=== PATIENT | male | born 1995 | race Caucasian/White ===

== ENCOUNTER → 2020-06-10 | Day surgery (SDC) | payer OTHER ==
[~2020-06-10] MED LIST: FAMOTIDINE20 MG PO; PROTONIX40 MG PO
== END | disposition home or self-care (01) ==
LOC: OR 07:13
PROVIDERS: Surgery
PROC: 0DB78ZX Excision of Stomach, Pylorus, Via Natural or Artificial Opening Endoscopic, Diagnostic (ICD-10-PCS; 2020-06-10)
PROC: 0DB68ZX Excision of Stomach, Via Natural or Artificial Opening Endoscopic, Diagnostic (ICD-10-PCS; 2020-06-10)
PROC: 0DB38ZX Excision of Lower Esophagus, Via Natural or Artificial Opening Endoscopic, Diagnostic (ICD-10-PCS; principal; 2020-06-10 10:00)
DX: K21.00 Gastro-esophageal reflux disease with esophagitis, without bleeding (principal); K29.50 Unspecified chronic gastritis without bleeding; K44.9 Diaphragmatic hernia without obstruction or gangrene; E78.5 Hyperlipidemia, unspecified; K22.10 Ulcer of esophagus without bleeding; S27.818A Other injury of esophagus (thoracic part), initial encounter; F17.210 Nicotine dependence, cigarettes, uncomplicated; G89.29 Other chronic pain; M79.18 Myalgia, other site; E66.9 Obesity, unspecified; Z68.36 Body mass index [BMI] 36.0-36.9, adult; Z79.899 Other long term (current) drug therapy; Z20.822 Contact with and (suspected) exposure to COVID-19; X58.XXXA Exposure to other specified factors, initial encounter
CPT/HCPCS: J2704; J7120

== ENCOUNTER → 2021-04-09 | Outpatient (CLI) | payer OTHER | LOC: EXRD 11:30 → CT 11:35 → EXRD 11:35 | DX: N50.811 Right testicular pain (principal); R93.811 Abnormal radiologic findings on diagnostic imaging of right testicle; N50.89 Other specified disorders of the male genital organs | CPT/HCPCS: 76870; Q9967 ==

== ENCOUNTER → 2021-05-02 | Outpatient (CLI) | payer OTHER | LOC: MRI 11:00 | DX: C62.90 Malignant neoplasm of unspecified testis, unspecified whether descended or undescended (principal) | CPT/HCPCS: 70553; A9577 ==

== ENCOUNTER → 2021-08-05 | Outpatient (CLI) | payer OTHER ==
[~2021-08-05] MED LIST changes: +IBUPROFEN800 MG PO; +PEPCID40 MG PO
== END ==
LOC: CT 07-24 08:30
DX: C62.90 Malignant neoplasm of unspecified testis, unspecified whether descended or undescended (principal); C43.59 Malignant melanoma of other part of trunk
CPT/HCPCS: Q9967

== ENCOUNTER 2021-08-25 21:41 | Observation (INO) | payer OTHER ==
[~2021-08-25] VITALS: Ht 172.7 cm; Wt 101.2 kg
[2021-08-25 22:45] LABS: HEMOGLOBIN 13.9 gm/dl (14.0-17.5); RED BLOOD COUNT 4.55 M/UL (4.20-5.50)
[2021-08-25 23:05] LABS: BUN/CREATININE RATIO 16 (0-10)
--- NOTE | 2021-08-26 09:07 | NUR ---
PATIENT HAD CRITICAL LABS TROPONIN 1813.8, CKMB 23.3, CKMB% 17.1. PROVIDERS SONJA AND JOSH WERE BOTH NOTIFIED. DR. MORENO SAID "ADD HIM TO MY LIST AND WE WILL COME SEE HIM." DR. CASILLAS WAS INFORMED THAT DR. MORENO HAD BEEN NOTIFIED WELL AND REPLIED "OK, THANK YOU." NO NEW ORDERS RECIEVED. WILL CONTINUE TO MONITORL.
[2021-08-26] MEDS ORDERED: LEVOFLOXACIN500 MG PO (10:14)
[2021-08-26] MEDS ORDERED: LORAZEPAM0.5 MG PO (10:14)
[2021-08-26] MEDS ORDERED: PROCHLORPERAZIN10 MG PO (10:17)
[2021-08-26] MEDS ORDERED: MAALOX PLUS 3030 ML PO (10:25)
[2021-08-26] MEDS ORDERED: ANTI-DIARRHEAL2 M1 PO (10:27)
[2021-08-26] MEDS ORDERED: ETOPOPHOS100 MG IV (10:32)
[2021-08-26] MEDS ORDERED: CISPLATIN IV (10:33)
[2021-08-26] MEDS ORDERED: BLEOMYCIN IV (10:39)
--- NOTE | 2021-08-26 14:36 | NUR ---
PATIENT OFF FLOOR FOR HEART CATH. LAB CALLED WITH CRITICAL LAB VALUES, TROPONIN 2972.9, CKMB 32.8, CKMB% 17.2. ALL VALUES REPORTED TO DR. RILEY. NO NEW ORDERS AT THIS TIME. WILL CONTINUE TO MONITOR.
[2021-08-26 20:06] LABS: HEMOGLOBIN 12.4 gm/dl (14.0-17.5)
[2021-08-26 20:09] LABS: RED BLOOD COUNT 4.09 M/UL (4.20-5.50); WHITE BLOOD COUNT 2.7 K/UL (4.5-11.0)
[2021-08-27 04:28] LABS: BUN/CREATININE RATIO 18 (0-10)
[2021-08-27 04:44] LABS: HEMOGLOBIN 11.9 gm/dl (14.0-17.5); RED BLOOD COUNT 3.91 M/UL (4.20-5.50); WHITE BLOOD COUNT 2.2 K/UL (4.5-11.0)
[2021-08-28 01:36] LABS: HEMOGLOBIN 11.6 gm/dl (14.0-17.5); RED BLOOD COUNT 3.82 M/UL (4.20-5.50)
[2021-08-28 01:40] LABS: WHITE BLOOD COUNT 1.6 K/UL (4.5-11.0)
[2021-08-28 02:01] LABS: BUN/CREATININE RATIO 16 (0-10)
[2021-08-28] MEDS ORDERED: ATORVASTATIN CA40 MG PO (14:28)
[2021-08-28] MEDS ORDERED: ACYCLOVIR200 MG PO (14:28)
[2021-08-28] MEDS ORDERED: COZAAR 25MG TAB25 MG PO (14:28)
[2021-08-28] MEDS ORDERED: CLOPIDOGREL75 MG PO ×2 (14:28→15:01)
[2021-08-28] MEDS ORDERED: MAGIC MOUTHWASH PO (14:28)
[2021-08-28] MEDS ORDERED: NITROGLYCERIN0.4 MG SL (14:28)
[2021-08-28] MEDS ORDERED: K-TAB ER20 MEQ PO (14:28)
[2021-08-28] MEDS ORDERED: ASPIRIN EC81 MG PO ×2 (14:28→15:01)
[2021-08-28] MEDS ORDERED: ACYCLOVIR400 MG PO (15:09)
[2021-08-28] MEDS ORDERED: MAGNESIUM OXID400 M1 PO (15:10)
== END 2021-08-28 15:43 | disposition home or self-care (01) ==
LOC: ER1 21:41 → CDU 08-26 03:45 → MED SURG 4 08-26 03:45 → PROG CARE 08-26 16:55
PROVIDERS: Nurse Practitioner; ADMIT Internal Medicine
DX: R07.89 Other chest pain (principal); I21.A1 Myocardial infarction type 2; C79.82 Secondary malignant neoplasm of genital organs; R00.1 Bradycardia, unspecified; D61.818 Other pancytopenia; E87.6 Hypokalemia; E83.42 Hypomagnesemia; Z90.79 Acquired absence of other genital organ(s); Z87.891 Personal history of nicotine dependence; Z79.82 Long term (current) use of aspirin; Z79.899 Other long term (current) drug therapy
CPT/HCPCS: ECHO; 36415; 71045; 80048; 80053; 80061; 81001; 82550; 82553; 83036; 83735; 84100; 84132; 84439; 84443; 84484; 85025; 85027; 85347; 85379; 86140; 92973; 92978; 93005; 93270; 93306; 96372; 96374; 99152; 99153; 99285; C1725; C1753; C1757; C1769; C1874; C1887; C1894; C9600; G0378; J1644; J1650; J1885; J2250; J3010; J3246; Q9967

== ENCOUNTER 2021-09-11 12:00 | Emergency (ER) | payer OTHER ==
[~2021-09-11 12:00] MED LIST changes: +ACYCLOVIR200 MG PO; +ACYCLOVIR400 MG PO; +ANTI-DIARRHEAL2 M1 PO; +ASPIRIN EC81 MG PO; +ATORVASTATIN CA40 MG PO; +BLEOMYCIN IV; +CISPLATIN IV; +CLOPIDOGREL75 MG PO; +COZAAR 25MG TAB25 MG PO; +ETOPOPHOS100 MG IV; +K-TAB ER20 MEQ PO; +LEVOFLOXACIN500 MG PO; +LORAZEPAM0.5 MG PO; +MAALOX PLUS 3030 ML PO; +MAGIC MOUTHWASH PO; +MAGNESIUM OXID400 M1 PO; +NITROGLYCERIN0.4 MG SL; +PROCHLORPERAZIN10 MG PO
[2021-09-11 13:17] LABS: HEMOGLOBIN 12.2 gm/dl (14.0-17.5); RED BLOOD COUNT 3.98 M/UL (4.20-5.50); WHITE BLOOD COUNT 8.2 K/UL (4.5-11.0)
[2021-09-11 13:38] LABS: BUN/CREATININE RATIO 12 (0-10)
== END 2021-09-11 14:50 | disposition home or self-care (01) ==
LOC: ER1 12:00 → CDU 14:13 → ER1 14:50
PROVIDERS: Physician Assistant
DX: I49.5 Sick sinus syndrome (principal); I25.2 Old myocardial infarction; I25.10 Atherosclerotic heart disease of native coronary artery without angina pectoris; C62.90 Malignant neoplasm of unspecified testis, unspecified whether descended or undescended; K21.9 Gastro-esophageal reflux disease without esophagitis; Z87.891 Personal history of nicotine dependence; Z85.820 Personal history of malignant melanoma of skin; Z95.0 Presence of cardiac pacemaker; Z79.02 Long term (current) use of antithrombotics/antiplatelets; Z79.899 Other long term (current) drug therapy
CPT/HCPCS: 71045; 80053; 83735; 85025; 93005; 99284